=== PATIENT | male | born 1940 | race Caucasian/White ===

== ENCOUNTER 2017-03-11 09:30 | Day surgery (SDC) | payer MEDICARE, OTHER ==
[2017-03-09 14:54] VITALS: BMI 25.8
[~2017-03-11 09:30] MED LIST: LACTATED RINGERS 1,000 ML IV SCH; LIDOCAINE 1% 20 ML VIAL (10MG/ML) FOR IV START INTRADERMA PRN
[2017-03-11 10:26] VITALS: RESP 18; TEMP 97.8
[2017-03-11] MEDS ORDERED: LIDOCAINE 1% INJ 10MG/ML (20 ML MDV) ONE (10:58)
[2017-03-11] MEDS ORDERED: PROPOFOL 10 MG/ML 20 ML VIAL IV ONE (10:58)
--- NOTE | 2017-03-11 11:18 | P.PCN ---
Date of Procedure: 03/11/17 Procedure(s) Performed: Brief history: Patient is a pleasant 76-year-old white male, scheduled for an elective upper endoscopy as well as colonoscopy as a part of evaluation of chronic cough and prior history of colon polyps. He denies any heartburn, dysphagia or odynophagia. He was recently diagnosed with possible GERD but patient does not have any heartburn and hence did not start any medications that was prescribed for it. Procedure performed: Esophagogastroduodenoscopy and biopsy Colonoscopy with biopsy. Preoperative diagnosis: Chronic cough History of colon polyps Anesthesia: MAC Procedure: After informed consent was obtained from the patient was brought into the endoscopy unit and IV sedation was administered by anesthesia under continuous monitoring. Initially upper endoscopy was done. The Olympus GF 160 video endoscope was inserted inserted into the mouth and esophagus intubated without any difficulty and was gradually advanced into the stomach and duodenum and carefully examined. The bulb and second part of the duodenum appeared normal. The scope was then withdrawn into the stomach adequately insufflated with air and upon careful examination the antrum had mild gastritis and biopsies were done from this area. The body, cardia and fundus appeared normal. The scope was then withdrawn into the esophagus. The GE junction was located at 40 cm to the incisors. Small hiatal hernia was noted. The GE junction appeared slightly irregular but there was no erythema erosions or ulcerations seen.. Rest of the esophagus appeared normal. Abscess were done from the distal esophagus to rule out reflux esophagitis. Patient tolerated the procedure well. At this time the patient continued to remain sedation. Initial digital rectal examination was normal. Olympus CF 160 video colonoscope was then inserted into the rectum and gradually advanced to the cecum without any difficulty. Careful examination was performed as the scope was gradually being withdrawn. The prep was excellent. The cecum, ascending colon, transverse colon, descending colon, sigmoid colon and rectum appeared normal. There was a 5 mL polyp in the sigmoid colon that was removed by biopsy. Retroflexion was performed in the rectum and small internal hemorrhoids were noted. Patient tolerated the procedure well. Impression: 1. Upper endoscopy revealed mild antral gastritis and a small hiatal hernia but no evidence of esophagitis. 2. Colonoscopy revealed a 5 mm sigmoid colon polyp that was removed by biopsy and small internal hemorrhoids. Recommendations: Findings of this examination were discussed with the patient as well as his family. He was advised to follow with the biopsy results. If the biopsy shows a tubular adenoma he can have a repeat colonoscopy in 5 years area In regards to the chronic cough at this time I suggested that he follow with the biopsy results and if the biopsy that showed evidence of esophagitis he may to have a trial of Prilosec 20 mg months.
[2017-03-11 11:43] VITALS: BP 91/53; PULSE 75
== END 2017-03-11 12:31 | disposition home or self-care (01) ==
LOC: ORWHC2ENDO 09:30
PROVIDERS: ATTEND Internal Medicine Gastroenterology
DX: Z12.11 Encounter for screening for malignant neoplasm of colon (principal); Z86.010 Personal history of colon polyps; R05 Cough; K29.50 Unspecified chronic gastritis without bleeding; K44.9 Diaphragmatic hernia without obstruction or gangrene; D12.5 Benign neoplasm of sigmoid colon; K64.8 Other hemorrhoids; E78.5 Hyperlipidemia, unspecified; I11.0 Hypertensive heart disease with heart failure; I50.9 Heart failure, unspecified; I48.91 Unspecified atrial fibrillation; Z95.810 Presence of automatic (implantable) cardiac defibrillator; J44.9 Chronic obstructive pulmonary disease, unspecified; M10.9 Gout, unspecified; E89.0 Postprocedural hypothyroidism; Z85.46 Personal history of malignant neoplasm of prostate; Z92.3 Personal history of irradiation; I25.2 Old myocardial infarction; Z86.718 Personal history of other venous thrombosis and embolism; Z79.899 Other long term (current) drug therapy; Z88.5 Allergy status to narcotic agent; Z88.8 Allergy status to other drugs, medicaments and biological substances; Z87.891 Personal history of nicotine dependence
CPT/HCPCS: 88305; 88342; 45380; 43239; J2001; J2704

== ENCOUNTER → 2018-05-06 | Outpatient (CLI) | payer MEDICARE, OTHER ==
[2018-05-06 09:50] LABS: Calcium 9.5 mg/dL (8.4-10.2); Potassium 4.9 mmol/L (3.5-5.1)
== END | disposition home or self-care (01) ==
LOC: LABWHC1 09:17
PROVIDERS: ATTEND Internal Medicine Cardiovascular Disease
DX: I42.8 Other cardiomyopathies (principal); I50.9 Heart failure, unspecified; I51.9 Heart disease, unspecified
CPT/HCPCS: 36415; 80048; 83880

== ENCOUNTER → 2018-08-03 | Outpatient (CLI) | payer MEDICARE, OTHER ==
[2018-08-03 10:09] LABS: HCT 37.3 % (39.0-53.0); HGB 12.4 gm/dL (13.0-17.5); MCH 32.1 pg (25.0-35.0); MCHC 33.3 g/dL (31.0-37.0); MCV 96.5 fL (80.0-100.0); Platelet Count 195 k/uL (150-450); RBC 3.87 m/uL (4.30-5.90); RDW 13.8 % (11.5-15.5); WBC 6.8 k/uL (3.8-10.6)
[2018-08-03 10:16] LABS: INR 1.5 (<1.2); Prothrombin Time 14.3 sec (9.0-12.0)
[2018-08-03 10:32] LABS: Calcium 9.7 mg/dL (8.4-10.2); Potassium 4.7 mmol/L (3.5-5.1)
== END | disposition home or self-care (01) ==
LOC: LABWHC1 09:13
PROVIDERS: ATTEND Internal Medicine
DX: I42.0 Dilated cardiomyopathy (principal); Z79.01 Long term (current) use of anticoagulants
CPT/HCPCS: 36415; 80048; 85027; 85610

== ENCOUNTER → 2019-05-11 | Outpatient (CLI) | payer MEDICARE, OTHER ==
[2019-05-11 18:16] LABS: African American GFR (CKD) 55.4 (60.0-200.0); Anion Gap 8.3 mmol/L (4.00-12.00); BUN/Creat Ratio 24.29 Ratio (12.00-20.00); Calcium 9.3 mg/dL (8.7-10.3); Carbon Dioxide 26.7 mmol/L (21.6-31.8); Potassium 4.6 mmol/L (3.5-5.5)
== END | disposition home or self-care (01) ==
LOC: LABWHC1 10:02
PROVIDERS: ATTEND Internal Medicine Cardiovascular Disease
DX: I42.8 Other cardiomyopathies (principal); I50.9 Heart failure, unspecified; I51.9 Heart disease, unspecified
CPT/HCPCS: 36415; 80048; 83735; 83880

== ENCOUNTER → 2019-05-26 | Outpatient (CLI) | payer MEDICARE, OTHER | END | disposition home or self-care (01) | LOC: LABWHC1 12:02 | PROVIDERS: ATTEND Physician Assistant | DX: C61 Malignant neoplasm of prostate (principal) | CPT/HCPCS: 36415; 84153 ==

== ENCOUNTER → 2019-07-06 | Outpatient (CLI) | payer MEDICARE, OTHER ==
[2019-07-06 17:41] LABS: African American GFR (CKD) 60.6 (60.0-200.0); BUN/Creat Ratio 27.69 Ratio (12.00-20.00); Calcium 9.6 mg/dL (8.7-10.3); Potassium 4.4 mmol/L (3.5-5.5)
== END | disposition home or self-care (01) ==
LOC: LABWHC1 11:15
PROVIDERS: ATTEND Internal Medicine Cardiovascular Disease
DX: I50.9 Heart failure, unspecified (principal); Z88.5 Allergy status to narcotic agent; Z88.6 Allergy status to analgesic agent; Z88.8 Allergy status to other drugs, medicaments and biological substances
CPT/HCPCS: 36415; 80048

== ENCOUNTER → 2021-07-05 | Outpatient (CLI) | payer MEDICARE ==
[2021-07-06 18:15] LABS: African American GFR (CKD) 59.7 (60.0-200.0); Anion Gap 13.4 mmol/L (4.00-12.00); BUN/Creat Ratio 22.31 Ratio (12.00-20.00); Carbon Dioxide 21.6 mmol/L (21.6-31.8); Magnesium 2.1 mg/dL (1.5-2.4); Non-African American GFR(CKD) 51.5 (60.0-200.0); Potassium 4.9 mmol/L (3.5-5.5)
== END | disposition home or self-care (01) ==
LOC: LABWHC1 13:26
PROVIDERS: ATTEND Internal Medicine Cardiovascular Disease
DX: I42.0 Dilated cardiomyopathy (principal); I25.5 Ischemic cardiomyopathy; I51.9 Heart disease, unspecified
CPT/HCPCS: 36415; 80048; 83735; 83880

== ENCOUNTER → 2022-04-01 | Outpatient (CLI) | payer MEDICARE | END | disposition home or self-care (01) | LOC: LABWHC1 10:41 | PROVIDERS: ATTEND Internal Medicine | DX: C61 Malignant neoplasm of prostate (principal); E03.9 Hypothyroidism, unspecified | CPT/HCPCS: 36415; 84153; 84443; 84481 ==

== ENCOUNTER → 2022-07-10 | Outpatient (CLI) | payer MEDICARE ==
--- NOTE | 2022-07-11 12:44 | CT ---
EXAMINATION TYPE: CT lumbar spine wo con DATE OF EXAM: 07/10/2022 COMPARISON: None HISTORY: Low back pain CT DLP: 625.4 mGycm CONTRAST: None TECHNIQUE: CT of the lumbar spine is performed on a spiral scan at 3 mm thick sections. Reconstructed images are performed in the coronal and sagittal planes. FINDINGS: T9-10: No focal disc herniation or significant disc bulge is evident. No spinal canal stenosis or jeff ral foraminal stenosis present. Some mild disc space narrowing may be present. T10-11: Disc space narrowing is present. No focal disc herniation or significant disc bulge is eviden t. No spinal canal stenosis or neural foraminal stenosis. T11-12: Mild disc space narrowing is present. No focal disc herniation or significant disc bulge is e vident. No spinal canal stenosis or neural foraminal stenosis. T12: Vertebroplasty is present. There is loss of vertebral body height. No posterior wall displacemen t. T12-L1: Disc space narrowing is present. Mild disc bulge is present this is anterior thecal sac conta ct. No spinal canal stenosis is present. Mild facet hypertrophy is present. Moderate bilateral forami nal stenosis is present. L1-L2: There is loss of disc height and vacuum disc phenomenon present. Residual disc bulge with mode rate anterior thecal sac compression. Facet hypertrophy is present. Moderate right and severe left fo raminal stenosis hasn't. L2-L3: Endplate changes are present. There is loss of disc height and vacuum disc phenomenon. Severe left and moderate to severe right foraminal stenosis is present L3-L4: There is loss of disc height. Vacuum disc phenomenon is present. Endplate spurring is present. There is moderate anterior thecal sac impression. AP spinal canal stenosis is present measuring 0.8 cm. Short pedicles are present. Severe bilateral foraminal stenosis is present, greater on the left. L4-L5: There is loss of disc height is level. Endplate spurring is present. This has moderate anterio r thecal sac compression. Borderline spinal canal stenosis is present. Facet hypertrophy is posterior lateral thecal sac compression anteriorly to some mild lateral canal narrowing. Severe left and righ t foraminal stenosis is present. L5-S1: There is loss of disc height with vacuum disc phenomenon present. Residual disc bulge slightly greater to the left paracentral region has nerve root contact. Significant thecal sac compression is not evident. No spinal canal stenosis is present. Severe left and right foraminal stenosis is presen t. Scoliosis is present with the convexity to the right. Incidental note is made of nonobstructing punct ate left renal stones. IMPRESSION: 1. Scoliosis. 2. Multilevel loss of disc height with vacuum disc phenomenon. 3. Some spinal canal stenosis is present at L4-5 secondary to residual disc bulging and endplate spur ring congenitally short pedicles and facet hypertrophy. 4. Multilevel areas of severe foraminal stenosis discussed above greater in the lower lumbar spine.
--- NOTE | 2022-07-11 16:15 | CT ---
EXAMINATION TYPE: CT angio head neck DATE OF EXAM: 07/10/2022 HISTORY: Unspecified visual loss COMPARISON: None. CT DLP: 1486.9 mGycm. Automated Exposure Control for Dose Reduction was Utilized. TECHNIQUE: CTA scan of the head and neck is performed without and with IV Contrast, patient injected with 65 mL of Isovue 370, axial images are obtained, coronal and sagittal reformatted images are rev iewed. 3D reconstructed images are created on an independent workstation and reviewed. FINDINGS: Carotid/Vascular Structures: Mild to moderate peripheral calcified plaque in the visualized portion o f the aortic arch. Normal three-vessel origin from aortic arch without significant stenosis. Normal o rigin right common carotid artery from the right brachiocephalic artery. Moderate to severe calcified plaque right carotid bulb extends into proximal internal/external carotid arteries without significa nt stenosis. [id number] peripheral calcified plaque in the distal internal carotid artery. Severe calcified plaque at the left carotid bulb extends into proximal internal carotid artery. Prese nce of severe calcified plaque makes accuracy of grading stenosis suboptimal due to blooming artifact . Significant stenosis is almost certainly present as residual diameter narrowed to 2.3 x 1.5 mm seri es 11 image 61 and reconstitutes to 7.8 mm superior to this. Patent external carotid artery with prob able significant stenosis likely near 60-70% at origin. Mild to moderate calcified plaque distally is seen. Patent anterior indicating artery. No significant focal stenosis or aneurysm in the anterior circulat ion. There are patent bilateral vertebral arteries which are codominant filling the basilar artery. P atent bilateral posterior communicating arteries are seen. No significant focal stenosis or aneurysm in the posterior circulation. Other: Noncontrast CT shows no acute intracranial hemorrhage or midline shift. There is mild to moder ate ventricular and sulcal prominence. 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 Post-CABG changes are partially imaged. Partial visualization of left chest wall pacemaker. Mild emph ysematous change in the visualized upper lungs. IMPRESSION: Severe calcified plaque left carotid bulb extends into proximal internal carotid artery c ausing significant stenosis. Degree of area of narrowing likely 80-90%. Advise neurosurgical and/or e ndovascular referral to further evaluate. A Yellow level critical message alert has been initiated for Dotty Walsh MD via the [employer] Critical Results System on 07/11/2022 1:13 PM. This message alert has been sent to Dotty Walsh MD via the preferences provided by the clinician for the receipt of Radiology Critical Findings. [facility] [id number].
== END | disposition home or self-care (01) ==
LOC: RADCTMAIN 13:23
PROVIDERS: ATTEND Psychiatry & Neurology Neurology
DX: I65.23 Occlusion and stenosis of bilateral carotid arteries (principal); M48.061 Spinal stenosis, lumbar region without neurogenic claudication; M51.26 Other intervertebral disc displacement, lumbar region; H54.7 Unspecified visual loss; M41.9 Scoliosis, unspecified
CPT/HCPCS: 82565; 84520; 72131; 70496; 70498; 36415; Q9967

== ENCOUNTER → 2022-08-12 | Outpatient (CLI) | payer MEDICARE ==
[2022-08-12 14:48] LABS: African American GFR (CKD) 59.3 (60.0-200.0); Albumin 4.4 g/dL (3.8-4.9); Albumin/Globulin Ratio 2.2 (1.60-3.17); Anion Gap 13.1 mmol/L (10.00-18.00); Blood Urea Nitrogen 32.5 mg/dL (9.0-27.0); Calcium 9.5 mg/dL (8.7-10.3); Carbon Dioxide 23.9 mmol/L (20.0-27.5); Non-African American GFR(CKD) 51.2 (60.0-200.0); Potassium 4.3 mmol/L (3.5-5.5); Prostate Specific Antigen 37.2 ng/mL (0.00-6.50); Total Bilirubin 0.8 mg/dL (0.30-1.20); Total Protein 6.4 g/dL (6.2-8.2)
== END | disposition home or self-care (01) ==
LOC: LABWHC1 10:13
PROVIDERS: ATTEND Nurse Practitioner Acute Care
DX: C61 Malignant neoplasm of prostate (principal)
CPT/HCPCS: 36415; 80053; 84153

== ENCOUNTER 2023-03-17 08:30 | Day surgery (SDC) | payer MEDICARE ==
[2023-03-17] MEDS ORDERED: LACTATED RINGERS 1,000 ML IV SCH (08:45)
[2023-03-17] MEDS ORDERED: LIDOCAINE 1% (10MG/ML) FOR IV START INTRADERMA PRN (08:45)
[2023-03-17 08:58] VITALS: PULSE 75; RESP 16; TEMP 97
[2023-03-17] MEDS ORDERED: PROPOFOL 10 MG/ML 20 ML VIAL IV ONE (09:35)
--- NOTE | 2023-03-17 09:56 | P.PCN ---
Date of Procedure: 03/17/23 Procedure(s) Performed: BRIEF HISTORY: Patient is a 82-year-old pleasant white male scheduled for an elective colonoscopy as a part of evaluation of prior history of colon polyps. Last colonoscopy was 5 years ago. PROCEDURE PERFORMED: Colonoscopy with snare polypectomy. PREOPERATIVE DIAGNOSIS: Straining of colon polyps. IV sedation per Anesthesia. PROCEDURE: After informed consent was obtained, the patient, was brought into the endoscopy unit. IV sedation was administered by Anesthesia under continuous monitoring. Digital rectal examination was normal. Initially the Olympus CF-160 flexible video colonoscope was then inserted in the rectum, gradually advanced into the cecum without any difficulty. Careful examination was performed as the scope was gradually being withdrawn. Ileocecal valve and the appendiceal orifice were visualized and appeared normal. Prep was excellent. Mucosa of the cecum, had 2 polyps measuring 5 mm in size removed by snare polypectomy. In the transverse colon there was a 6 mm and 1 cm polyp removed by snare polypectomy. Rest of the ascending colon, transverse colon, descending colon, sigmoid colon, and rectum appeared normal. In the sigmoid colon there were 2 polyps measuring between 4 and 5 mm in size removed by snare polypectomy. Retroflexion was per formed in the rectum and no lesions were seen. The patient tolerated the procedure well. IMPRESSION: 5 mm 2 cecal polyp status post polypectomy 6 mm and 1 cm transverse colon polyp status post polypectomy 5 mm 3 sigmoid: Polyp status post polypectomy Scattered sigmoid diverticulosis RECOMMENDATIONS: Findings of this examination were discussed with the patientas well as his family. He was advised to follow with the biopsy results. The biopsies revealed adenoma he can have a repeat colonoscopy in 3 years from now based on his overall medical condition.].
[2023-03-17 10:20] VITALS: BP 100/54
== END 2023-03-17 10:33 | disposition home or self-care (01) ==
LOC: ORWHC2ENDO 08:30
PROVIDERS: ATTEND Internal Medicine Gastroenterology
DX: Z12.11 Encounter for screening for malignant neoplasm of colon (principal); D12.0 Benign neoplasm of cecum; D12.3 Benign neoplasm of transverse colon; D12.5 Benign neoplasm of sigmoid colon; Z86.010 Personal history of colon polyps; Z88.8 Allergy status to other drugs, medicaments and biological substances; Z79.899 Other long term (current) drug therapy; I25.2 Old myocardial infarction; E78.5 Hyperlipidemia, unspecified; I11.0 Hypertensive heart disease with heart failure; I50.9 Heart failure, unspecified; E03.9 Hypothyroidism, unspecified; Z79.890 Hormone replacement therapy
CPT/HCPCS: 45385; J2704; 88305

== ENCOUNTER → 2023-03-18 | Outpatient (CLI) | payer MEDICARE ==
--- NOTE | 2023-03-18 10:25 | US ---
EXAMINATION TYPE: US carotid duplex BILAT DATE OF EXAM: 03/18/2023 COMPARISON: CTA CLINICAL INDICATION: Male, 82 years old with history of I65.22 CAROTID STENOSIS; Known stenosis left side, follow-up TECHNIQUE: Carotid duplex ultrasound examination. Indirect Doppler criteria was utilized. FINDINGS: EXAM MEASUREMENTS: RIGHT: Peak Systolic Velocity (PSV) cm/sec ----- Right CCA: 61.6 ----- Right ICA: 183.3 ----- Right ECA: 219.9 ICA/CCA ratio: 3.0 RIGHT: End Diastole cm/sec ----- Right CCA: 16.2 ----- Right ICA: 18.4 ----- Right ECA: 19.2 LEFT: Peak Systolic Velocity (PSV) cm/sec ----- Left CCA: 56.6 ----- Left ICA: 454.9 ----- Left ECA: 206.6 ICA/CCA ratio: 8.0 LEFT: End Diastole cm/sec ----- Left CCA: 16.5 ----- Left ICA: 87.5 ----- Left ECA: 0.0 VERTEBRALS (direction of flow): Right Vertebral: Antegrade Left Vertebral: Antegrade Rhythm: Normal PROPULSION GENERATOR REPAIRER NOTES: Heterogeneous plaque bilaterally with elevated velocities and ratios bilaterally , more on left side IMPRESSION: 1. Greater than 70% stenosis of the left carotid bifurcation. 2. 50-69% stenosis of the right carotid bifurcation. Criteria for Assigning % of Stenosis / Diameter reduction (Estimation based on the indirect measurements of the internal carotid artery velocities (ICA PSV). 1. Normal (no stenosis)=ICA PSV < 125 cm/s: ratio < 2.0: ICA EDV<40 cm/s. 2. Less than 50% stenosis=ICA PSV < 125 cm/s: ratio < 2.0: ICA EDV<40 cm/s. 3. 50 to 69% stenosis=ICA PSV of 125 to 230 cm/s: ration 2.0 ? 4.0: ICA EDV 40-100 cm/s. 4. Greater than 70% stenosis to near occlusion= ICA PSV > 230 cm/s: ratio > 4.0: ICA EDV > 100 cm/s. 5. Near occlusion= ICA PSV velocities may be low or undetectable: variable ratio and ICA EDV. 6. Total occlusion=unable to detect flow.
== END | disposition home or self-care (01) ==
LOC: RADUSWWP 09:38
PROVIDERS: ATTEND Internal Medicine
DX: I65.23 Occlusion and stenosis of bilateral carotid arteries (principal)
CPT/HCPCS: 93880

== ENCOUNTER → 2023-07-15 | Outpatient (CLI) | payer MEDICARE ==
[2023-07-15 11:22] LABS: African American GFR (CKD) 68 (>60 ml/min/1.73 sqM); Blood Urea Nitrogen 35 mg/dL (9-20); Non-African American GFR(CKD) 59 (>60 ml/min/1.73 sqM)
--- NOTE | 2023-07-15 15:56 | NM ---
EXAMINATION TYPE: NM bone scan whole body DATE OF EXAM: 07/15/2023 COMPARISON: 07/15/2023 CLINICAL INDICATION: Male, 82 years old with history of C61 PROSTATE CANCER; Delayed whole-body scanning was performed following the injection of 23.8 mCi Tc 99m MDP. Images acq uired 3 hours post injection. FINDINGS: Intense abnormal uptake bilateral shoulder cord CT findings of severe glenohumeral joint and AC joint arthropathy. Mild intensity uptake sternoclavicular joints compatible with arthritic change. [id number]-lk-[id number] intensity uptake with scoliotic curvature of the lower cervical, thoracic and lumbar spine compatible with degenerative disc disease. More intense abnormal uptake involving the mid and lower lumbar spine appears to be concordant with severe degenerative disc disease and previous verteb ral plasty of the vertebral canal. Mild intensity uptake involving the knees and feet bilaterally likely postoperative. Mild intensity uptake. There are lateral left lower rib cage were previous fracture by CT scan. IMPRESSION: No diagnostic evidence of metastases.
--- NOTE | 2023-07-16 09:52 | CT ---
EXAMINATION TYPE: CT ChestAbdPelvis w con CT DLP: 823.9 mGycm, Automated exposure control for dose reduction was used. DATE OF EXAM: 07/15/2023 1:01 PM COMPARISON: 07/10/2022, bone scan 07/15/2023 CLINICAL INDICATION:Male, 82 years old with history of C61 PROSTATE CANCER, prostate CA Technique: Multiple axial images of the chest, abdomen, and pelvis were obtained. Two-dimensional cor onal and sagittal reconstructions were obtained. Contrast used:100 mL of Isovue 300 with IV Contrast, Oral contrast used: with Oral Contrast Findings: CHEST: LUNGS/ PLEURA: No focal consolidation, pneumothorax or pleural effusion. Streaky atelectasis in the l rico lines are present. There is some calcified granulomas present along the periphery suspected. Pred ominantly in the posterior aspect of the lower lungs. AIRWAY: Patent and unremarkable. HEART: The heart is markedly enlarged for size with calcifications along the left ventricle mayo com patible with prior injury. Cardiac conduction leads terminating in right ventricle and right atrium. Multiple electronic leads are present. Some of which may be abandoned and the anterior lower abdomina l wall. Moderate coronary artery calcifications. MEDIASTINUM: No gross evidence of adenopathy. Partially calcified lymph nodes in the mediastinum. VASCULATURE: No aortic aneurysm. MUSCULOSKELETAL: No acute osseous abnormalities. Sternotomy wires are present. SOFT TISSUES/LYMPH NODES: Unremarkable. LOWER NECK: No significant findings. ABDOMEN: ABDOMEN LIVER: Unremarkable GALLBLADDER AND BILE DUCTS: Unremarkable. PANCREAS: Unremarkable. SPLEEN: Unremarkable. ADRENAL GLANDS: Unremarkable. KIDNEYS AND URETERS: No evidence of hydronephrosis or renal calculus. The ureters are unremarkable. Simple appearing right renal cyst. PELVIS BLADDER: Unremarkable REPRODUCTIVE: Prostate gland measures up to 3.9 cm. ABDOMEN & PELVIS STOMACH AND BOWEL: No evidence of bowel obstruction. Moderate amount of stool is seen throughout the colon. PERITONEUM: No evidence of pneumoperitoneum or free fluid. VASCULATURE: Moderate atherosclerotic calcifications are present throughout the abdominal aorta and i ts branches. MUSCULOSKELETAL: No acute osseous abnormalities, no suspicious osseous lesions definitively visualize d. Mild to moderate degeneration changes of the hips and moderate to severe degeneration changes spin e with vertebroplasty changes of the T12 vertebrae. LYMPH NODES: No gross evidence for lymphadenopathy. SOFT TISSUE/ABDOMINAL WALL: Unremarkable IMPRESSION: 1. No evidence for metastatic disease. No evidence for lymphadenopathy or mass. The prostate gland i s within normal limits for size. If there is concern for prostate metastatic disease a PET/CT gallium -68 PSMA scan could provide further more sensitive evaluation. 2. Cardiomegaly with evidence of prior injury to the left ventricular wall. 3. Moderate to severe degeneration changes spine. 4. Evidence of chronic granulomatous disease involving the mediastinum and bilateral lower lungs wit h scattered calcified granulomas and partially calcified lymph nodes.
== END | disposition home or self-care (01) ==
LOC: RADNMMAIN 09:33
PROVIDERS: ATTEND Nurse Practitioner Acute Care
DX: Z01.812 Encounter for preprocedural laboratory examination (principal); C61 Malignant neoplasm of prostate
CPT/HCPCS: 82565; 84520; 71260; 74177; 36415; 78306; A9503; Q9967

== ENCOUNTER → 2024-04-06 | Outpatient (CLI) | payer MEDICARE ==
--- NOTE | 2024-04-06 09:53 | US ---
EXAMINATION TYPE: US carotid duplex BILAT DATE OF EXAM: 04/06/2024 COMPARISON: NONE CLINICAL INDICATION: Male, 83 years old with history of I65.22 OCCLUSION AND STENOSIS OF LEFT CAROTID TAE; known stenosis TECHNIQUE: Carotid duplex ultrasound examination. Indirect Doppler criteria was utilized. FINDINGS: EXAM MEASUREMENTS: RIGHT: Peak Systolic Velocity (PSV) cm/sec ----- Right CCA: 76.7 ----- Right ICA: 194.0 ----- Right ECA: 286.0 ICA/CCA ratio: 2.5 RIGHT: End Diastole cm/sec ----- Right CCA: 11.0 ----- Right ICA: 24.3 ----- Right ECA: 0.0 LEFT: Peak Systolic Velocity (PSV) cm/sec ----- Left CCA: 46.2 ----- Left ICA: 353 ----- Left ECA: 194 ICA/CCA ratio: 7.6 LEFT: End Diastole cm/sec ----- Left CCA: 11.0 ----- Left ICA: 45.9 ----- Left ECA: 0.0 VERTEBRALS (direction of flow): Right Vertebral: Antegrade Left Vertebral: Antegrade Rhythm: Normal BUSINESS CENTER ATTENDANT NOTES: Known extensive stenosis more on the left then right, left proximal ICA has severe stenosis IMPRESSION: 70% to near occlusion of the bilateral carotid bifurcations by peak systolic velocity. Criteria for Assigning % of Stenosis / Diameter reduction (Estimation based on the indirect measurements of the internal carotid artery velocities (ICA PSV). 1. Normal (no stenosis)=ICA PSV < 125 cm/s: ratio < 2.0: ICA EDV<40 cm/s. 2. Less than 50% stenosis=ICA PSV < 125 cm/s: ratio < 2.0: ICA EDV<40 cm/s. 3. 50 to 69% stenosis=ICA PSV of 125 to 230 cm/s: ration 2.0 ? 4.0: ICA EDV 40-100 cm/s. 4. Greater than 70% stenosis to near occlusion= ICA PSV > 230 cm/s: ratio > 4.0: ICA EDV > 100 cm/s. 5. Near occlusion= ICA PSV velocities may be low or undetectable: variable ratio and ICA EDV. 6. Total occlusion=unable to detect flow.
== END | disposition home or self-care (01) ==
LOC: RADUSWWP 08:55
PROVIDERS: ATTEND Surgery Vascular Surgery
DX: I65.23 Occlusion and stenosis of bilateral carotid arteries (principal)
CPT/HCPCS: 93880

== ENCOUNTER → 2024-07-06 | Outpatient (CLI) | payer MEDICARE ==
[2024-07-06 15:54] LABS: Chol/HDL Ratio 3.83 Ratio; LDL Cholesterol,Calculated 34.5 mg/dL (0.0-131.0)
== END | disposition home or self-care (01) ==
LOC: LABWHC1 09:45
PROVIDERS: ATTEND Internal Medicine
DX: C61 Malignant neoplasm of prostate (principal); E78.00 Pure hypercholesterolemia, unspecified
CPT/HCPCS: 36415; 80061; 84153

== ENCOUNTER → 2024-07-20 | Outpatient (CLI) | payer MEDICARE ==
[2024-07-20 18:19] LABS: HCT 31.2 % (39.6-50.0); MCH 32.1 pg (27.0-32.0); MCHC 32.1 g/dL (32.0-37.0); Mean Platelet Volume 10.8 FL (9.5-12.2); NRBC Per 100 WBC 0 X 10*3/uL (0.00-0.01); Platelet Count 159 X 10*3/uL (140-440); RBC 3.12 X 10*6/uL (4.40-5.60); RDW 16.1 % (11.5-14.5); WBC 7.37 X 10*3/uL (4.50-10.00)
[2024-07-20 19:22] LABS: NT-Pro-B-Type Natriuretic Pept 856 pg/mL (0-450)
[2024-07-20 20:11] LABS: Blood Urea Nitrogen 32.9 mg/dL (9.0-27.0); Calcium 9.8 mg/dL (8.7-10.3); Carbon Dioxide 25.3 mmol/L (21.6-31.8); Chloride 101 mmol/L (96-109); Glucose 183 mg/dL (70-110); Magnesium 1.9 mg/dL (1.5-2.4); Potassium 3.9 mmol/L (3.5-5.5); Sodium 141 mmol/L (135-145)
== END | disposition home or self-care (01) ==
LOC: LABWHC1 14:14
PROVIDERS: ATTEND Internal Medicine Cardiovascular Disease
DX: I42.8 Other cardiomyopathies (principal); I50.9 Heart failure, unspecified; I51.9 Heart disease, unspecified
CPT/HCPCS: 36415; 80048; 83735; 83880; 85027

== ENCOUNTER → 2025-03-15 | Outpatient (CLI) | payer MEDICARE ==
[2025-03-15 18:24] LABS: Basophils # (A) 0.07 X 10*3/uL (0.00-0.10); Basophils % (A) 0.7 %; Eosinophils # (A) 0.03 X 10*3/uL (0.04-0.35); Eosinophils % (A) 0.3 %; HCT 33.9 % (39.6-50.0); HGB 10.7 g/dL (13.0-17.0); Lymphocytes # (A) 0.85 X 10*3/uL (0.90-5.00); Lymphocytes % (A) 8.9 %; MCH 31.2 pg (27.0-32.0); MCHC 31.6 g/dL (32.0-37.0); MCV 98.8 FL (80.0-97.0); Mean Platelet Volume 10.7 FL (9.5-12.2); Monocytes # (A) 0.95 X 10*3/uL (0.20-1.00); NRBC Per 100 WBC 0 X 10*3/uL (0.00-0.01); Neutrophils # (A) 7.61 X 10*3/uL (1.80-7.70); Neutrophils % (A) 79.8 %; Platelet Count 165 X 10*3/uL (140-440); RBC 3.43 X 10*6/uL (4.40-5.60); RDW 15.8 % (11.5-14.5); WBC 9.54 X 10*3/uL (4.50-10.00)
[2025-03-15 22:15] LABS: % Iron Saturation 27.53 (15.00-50.00); ALT 26 U/L (10-49); AST 40 U/L (14-35); Albumin 4.8 g/dL (3.8-4.9); Albumin/Globulin Ratio 2.09 Ratio (1.60-3.17); Alkaline Phosphatase 104 U/L (41-126); BUN/Creat Ratio 30.58 Ratio (12.00-20.00); Blood Urea Nitrogen 36.7 mg/dL (9.0-27.0); Calcium 10.2 mg/dL (8.7-10.3); Carbon Dioxide 27.7 mmol/L (21.6-31.8); Chloride 101 mmol/L (96-109); Globulin 2.3 g/dL (1.6-3.3); Glucose 113 mg/dL (70-110); Iron 98 UG/DL (65-175); Potassium 4.1 mmol/L (3.5-5.5); Sodium 142 mmol/L (135-145); Total Bilirubin 1.3 mg/dL (0.3-1.2); Total Iron Binding Capacity 356 UG/DL (228-460); Total Protein 7.1 g/dL (6.2-8.2)
[2025-03-16 15:31] LABS: Zinc, Serum 63 ug/dL (60-130)
== END | disposition home or self-care (01) ==
LOC: LABWHC1 12:57
PROVIDERS: ATTEND Nurse Practitioner Acute Care
DX: C61 Malignant neoplasm of prostate (principal); D64.9 Anemia, unspecified
CPT/HCPCS: 36415; 80053; 82525; 82607; 82728; 82746; 83540; 83550; 84153; 84439; 84443; 84481; 84630; 85025